=== PATIENT | female | born 1965 | race Caucasian/White ===

== ENCOUNTER 2017-03-07 07:18 | Emergency (ER) | payer BC ==
--- NOTE | 2017-03-07 08:25 | UC ---
Shoulder Pain HPI - HPI Summary HPI Summary: C/o swelling of rt medial clavicle x 12 days. no trauma. has not been manipulating it. She can feel pulling sensation across length of clavicle into right shoulder with moving right arm. Not painful. Not UTD with mammo - does not recall last mammo. + smoker. Her BF came in after the xray and was there for results. He says he nags her all the time about going to the dr. - History of Current Complaint Chief Complaint: UCChestPain Stated Complaint: RIGHT COLLAR BONE PAIN Time Seen by Provider: 03/07/17 07:20 Hx Last Menstrual Period: 02/23/17 - Allergies/Home Medications Allergies/Adverse Reactions: Allergies Allergy/AdvReac Type Severity Reaction Status Date / Time Amoxicillin Allergy Intermediate Rash Verified 03/07/17 07:36 PMH/Surg Hx/FS Hx/Imm Hx Previously Healthy: Yes - Surgical History Surgical History: None - Family History Known Family History: Positive: Diabetes - Dad borderline - Social History Alcohol Use: None Substance Use Type: None Smoking Status (MU): Heavy Every Day Tobacco Smoker Type: Cigarettes Amount Used/How Often: 1 pk daily Review of Systems Constitutional: Negative Skin: Negative Eyes: Negative ENT: Negative Respiratory: Negative Cardiovascular: Negative Gastrointestinal: Negative Genitourinary: Negative Motor: Other - rt clavicle swelling Neurovascular: Negative Musculoskeletal: Negative Neurological: Negative Psychological: Negative All Other Systems Reviewed And Are Negative: Yes Physical Exam Triage Information Reviewed: Yes Appearance: Well-Appearing, No Pain Distress, Well-Nourished - she does become tearful Vital Signs: Initial Vital Signs Temp 99.4 F 03/07/17 07:24 Pulse 69 03/07/17 07:24 Resp 18 03/07/17 07:24 BP 142/72 03/07/17 07:24 Pulse Ox 100 03/07/17 07:24 Vital Signs Reviewed: Yes Eye Exam: Normal ENT Exam: Normal Dental Exam: Normal Neck exam: Normal Neck: Positive: Supple, Nontender, No Lymphadenopathy, Other: - no thyromegally or nodules palpated. Negative: Nuchal Rigidity Respiratory Exam: Normal Respiratory: Positive: Chest non-tender, Lungs clear, Normal breath sounds, No respiratory distress, No accessory muscle use Cardiovascular Exam: Normal Cardiovascular: Positive: RRR, No Murmur, Pulses Normal, Brisk Capillary Refill Abdomen Description: Positive: Nontender, Soft Musculoskeletal Exam: Other - rt medial clavicle swelling, not tender. firm Musculoskeletal: Positive: Other: - Rt axilla without any discrete firm lymph nodes palpated. Neurological Exam: Normal Psychological Exam: Normal Skin Exam: Normal Shoulder Course/Dx - Course Course Of Treatment: rt clavicle xray & CXR today - mild AC joint DJD, but no abnormality at the sternoclavicular joint. I spoke w/ radiologist on the phone to confirm no findings. He also recommends CT for more sensitive testing for clavicle and perhaps US if soft tissue is supsected. This is relayed to the pt and her BF. Pt is quite reassured but I have stressed the importance of f/u for this. - Differential Dx/Diagnosis Differential Diagnosis/HQI/PQRI: Arthritis, Bursitis, Contusion, Fracture ( Closed), Tendonitis Provider Diagnoses: Right chest wall tissue swelling Discharge - Discharge Plan Condition: Stable Disposition: HOME Patient Education Materials: Soft Tissue Chest Tumor (ED) Referrals: BRIDGER Reece [Primary Care Provider] - 3 Days Additional Instructions: It is very important that you get an updated mammogram. You can get a rx from your PCP or [facility]. I spoke with the radiologist and he does not see any abnormality at the are aof concern on your clavicle. We did discuss that a CT scan is a much better test to evaluate the clavicle and I would recommend this ordered by your PCP. Try not to touch it. Ice it 20 mins on/20 mins off with a towel barrier.
--- NOTE | 2017-03-07 08:44 | RAD ---
INDICATION: Nontraumatic right periclavicular swelling COMPARISON: None TECHNIQUE: PA and lateral views of the chest and 2 views of the right clavicle were obtained. FINDINGS: The heart and mediastinum are normal in size and contour. The lungs are grossly clear. There is no evidence of large pleural effusion. Visualized bones are normal for the patient's age. The right clavicle is intact. Degenerative changes at the right acromioclavicular joint include mild periarticular osteophyte formation and a mild degree of soft tissue swelling overlying the superior aspect of the joint. There is no radiographic evidence of free air beneath the diaphragm IMPRESSION: MILD DEGENERATIVE CHANGES AT THE RIGHT ACROMIOCLAVICULAR JOINT DESCRIBED ABOVE IN THIS OTHERWISE NORMAL RADIOGRAPHIC EXAMINATION.
[2017-03-07 09:48] VITALS: BP 112/69
== END 2017-03-07 09:48 | disposition home or self-care (01) ==
LOC: UCCORT 07:18
DX: R22.2 Localized swelling, mass and lump, trunk (principal); M19.011 Primary osteoarthritis, right shoulder; Z88.1 Allergy status to other antibiotic agents; F17.210 Nicotine dependence, cigarettes, uncomplicated
CPT/HCPCS: 71020; 99212; G0463